=== PATIENT | female | born 1980 | race Caucasian/White ===

== ENCOUNTER 2018-07-14 11:50 | Inpatient (IN) ==
[2018-07-14 07:11] LABS: Basophils % 0.3 %; Eosinophils % 0.4 %; Hematocrit 38.3 % (35.3-44.9); Hemoglobin 12.9 g/dL (11.5-15.4); Immature Granulocytes % 0.3 % (0-4); Lymphocytes # 1.4 K/mcL (0.6-4.6); Lymphocytes % 12.6 %; Mean Corpuscular HGB Conc 33.7 g/dL (31.6-35.5); Mean Corpuscular Hemoglobin 30.3 pg (28.0-33.3); Mean Corpuscular Volume 89.9 fL (83.0-100.0); Mean Platelet Volume 11.8 fL (9.4-12.4); Monocytes # 0.5 K/mcL (0.0-1.3); Monocytes % 4.8 %; Neutrophils # 8.9 K/mcL (1.6-8.9); Platelet Count 198 K/mcL (140-400); Red Blood Count 4.26 M/mcL (3.82-4.97); Segmented Neutrophils % 81.6 %
--- NOTE | 2018-07-14 07:18 | OB/GYN History & Physical ---
Date of Encounter: 07/14/18 Time of Encounter: 07:14 Assessment and Plan (1) Previous section Current visit: Yes Status: Chronic (2) Active labor at term Current visit: Yes Status: Acute (3) Post-dates Current visit: Yes Status: Acute Qualifiers: Post-term type: 40-42 weeks gestation Qualified Code(s): O48.0 - Post-term History of Present Illness HPI: Ms. Clemente is a 38 year old female Patient is 38-year-old 1 para 7 white female enters today complaining of contractions. Denies spontaneous rupture membranes. She been followed in the office without difficulties. She denies history of TOLAC 6. She desires sterilization. Past Med Surg Social Fam HX - Past Medical History Medical history: no medical history Psychiatric history: no psych history - Past Surgical History Surgical History: - Social History Smoking Status: Never smoker Alcohol use: none Drug use: none - Family History Mother History Unknown: Yes Living Status: Still Living Hx Family Cardiac Disorders: No Hx Family Respiratory Disorders: No Hx Family Cancer: No Hx Family GI Disorders: No Hx Family Genitourinary Disorders: No Hx Family Endocrine Disorder: No Hx Family Musculoskeletal Disorders: No Hx Family Neuromuscular Disorders: No Hx Family Neurologic Disorders: No Hx Family HEENT Disorders: No Hx Family Autoimmune Disorders: No Hx Family Reproductive Disorders: No Hx Family Psychosocial Disorders: No Hx Family Medical Disorders: No Obstetrical History - Pregnancies : 8 Para: 7 Medications and Allergies Allergy/AdvReac Type Severity Reaction Status Date / Time No Known Allergies Allergy Verified 07/14/18 07:04 Review of System OB All systems PM: reviewed and no additional remarkable complaints except as stated - Genitourinary Genitourinary: amenorrhea - Menstruation Menstruation: amenorrhea Exam - Constitutional Constitutional: well developed, well nourished, moderate distress - HEENT HEENT: PERRL - Neck Neck exam: full ROM - Lungs Respiratory exam: CTAB - Cardiovascular Cardiovascular exam: RRR - Abdomen Abdomen: Present: gravid, non tender - Cervix Dilation: 7 Effacement: 80 Station: 0 - Uterus Uterus exam: Present: enlarged Results Result Diagrams: 07/14/18 06:55 All other labs normal. - VTE Reasons for not Prescribing Prophylaxis: Treatment not Indicated - Low risk for VTE
--- NOTE | 2018-07-14 07:55 | Anesthesia Evaluation PreOp ---
Date of Encounter: 07/14/18 Time of Encounter: 07:30 - Past History Planned Operation: Potential Stat Cardiac History: Denies any Significant Hx Pulmonary History: Denies Any Significant HX NETWORK SPECIALIST History: Denies Any Significant HX Other Medical History: Denies Any Significant HX Anesthesia History: No Prior Anesthetic Complications (previous GIANCARLO x 1--no complications; never had any procedure requiring GA; denies family h/o GA complications) : Yes Alcohol Use: none Drug use: none Medications and Allergies Allergy/AdvReac Type Severity Reaction Status Date / Time No Known Allergies Allergy Verified 07/14/18 07:04 - Meds/Allergy Pre-op Review Medications Reviewed: Yes Allergies Reviewed: Yes Beta Blockers on Current Med List: No Anesthesia Results - Labs 07/14/18 06:55 Anesthesia Exam O2 Sat Height 1.63 m Weight 74 kg NPO (# of Hours): solids > 8hrs Pain Scale: 7 Pain Scale Used: Larsen-Ureña (Faces) - HEENT Pupil (Motor): Pupils equal Mallampati: II Teeth: Missing (top left lateral incisor) Oral Opening: Greater than 3 - NETWORK SPECIALIST LOC: Oriented NETWORK SPECIALIST Motor: Normal RUE, Normal LUE, Normal RLE, Normal LLE, Normal Face NETWORK SPECIALIST Sensory: Normal: RUE, LUE, RLE, LLE, Face - Cardiac Rhythm: Regular Murmur: None - Pulmonary Breath Sounds: bilateral Clear Respiratory Effort: Symmetrical Anesthesia Assess/Plan ASA Score: 2 Level of consciousness: Cooperative, Oriented, Restless Anesthetic Plan: General (In the event of emergency , discussed anesthetic plan of care with patient. Because patient is declining a GIANCARLO at this time, the only option would be GETA. Patient verbalizes understanding. Encouraged patient to let anesthesia provider know if she changes her mind and would like a GIANCARLO. Consent obtained.) Autologous Blood: No Monitoring Plan: Standard Monitors Recovery Plan: PACU
--- NOTE | 2018-07-14 08:07 | OB Labor Progress Note ---
Date of Encounter: 07/14/18 Time of Encounter: 07:55 Labor Progress Note - Cervix Cervix: RIM / 90 / 0 - Heart Tones Heart Tones: Cat 1 - Interventions Interventions: AROM / CLEAR
--- NOTE | 2018-07-14 08:58 | OB/GYN Procedure Note ---
Delivery - Delivery Date: 07/14/18 Provider: Prateek Hernandez Intrapartum events: none Delivery induction: none Delivery monitor: external FHT, external uterine Anesthesia: none Quantitated Blood Loss: 400 - Infant (s) Infant A Infant Delivery Date: 07/14/18 Delivery Time: 08:15 Presentation: vertex Position: OA Route of delivery: Gender: Female Viability: Viable Pounds: 8 Ounces: 6 at 1 minute: 8 at 5 mins: 9 Shoulder Dystocia: not encountered Placenta: spontaneous Cord: other (Cord was looped around the leg 2) - Repair Episiotomy: none - Complications Delivery complications: none - Disposition Mom disposition: stable in LDR [place] disposition: stable in LDR - Comments Comments: Patient presented to labor and delivery in spontaneous labor. She progressed to complete and on the perineum and delivered a live female weighing 8 lbs. 6 oz. Apgars were 8 and 9. Placenta delivered spontaneously intact. Position was occiput anterior. Asthma blood loss was 400 mL. No episiotomy or tears were encountered.
[~2018-07-14 11:50] MED LIST: Acetaminophen 325 MG TABLET PO PRN; Famotidine 20 MG/2 ML VIAL IVP PRN; Lidocaine -MPF 2% 5 ML VIAL ONE; Measles/Mumps/Rubella Vacc 0.5 ML VIAL SQ PRN; Metoclopramide 10 MG/2 ML VIAL IVP PRN; Naloxone 0.4 MG/ML INJ IVP PRN; Ondansetron 4 MG/2 ML VIAL IVP PRN; Oxytocin 20 units/ LR 1000 mL 20 UNIT/1,000 ML BAG IVC ONE; Oxytocin 20 units/ LR 1000 mL 20 UNIT/1,000 ML BAG IVC SCH; Prenatal Vit/FA 1 EACH TABLET PO SCH; Ringers Solution, Lactated 1,000 ML IVC SCH
[2018-07-15] MEDS ORDERED: Ibuprofen 600 MG TABLET PO PRN (02:01)
[2018-07-15 04:26] LABS: Eosinophils % 0.6 %; Hematocrit 32.7 % (35.3-44.9); Immature Granulocytes % 0.3 % (0-4); Lymphocytes % 14.7 %; Mean Corpuscular HGB Conc 33.6 g/dL (31.6-35.5); Mean Corpuscular Hemoglobin 30.3 pg (28.0-33.3); Mean Corpuscular Volume 90.1 fL (83.0-100.0); Monocytes % 6.8 %; Platelet Count 162 K/mcL (140-400); Red Blood Count 3.63 M/mcL (3.82-4.97); Segmented Neutrophils % 77.4 %
[2018-07-15 04:27] LABS: Basophils % 0.2 %; Eosinophils # 0.1 K/mcL (0.0-0.6); Lymphocytes # 1.4 K/mcL (0.6-4.6); Monocytes # 0.7 K/mcL (0.0-1.3); Neutrophils # 7.3 K/mcL (1.6-8.9)
[2018-07-15 09:04] VITALS: BP 100/59
--- NOTE | 2018-07-15 09:12 | Discharge Summary ---
Date of Encounter: 07/15/18 Time of Encounter: 09:10 - Discharge Diagnosis (1) (vaginal after ) Priority: Primary Status: Acute Comments: Pt meeting all milestones. Discharge home today. (2) Breast feeding status of mother Priority: Secondary Status: Acute - Discharge Medications Home Medications: Acetaminophen [Tylenol] 650 mg PO Q6HR PRN tablet 07/15/18 [Rx] Docusate [Colace] 100 mg PO BID capsule 07/15/18 [Rx] Ibuprofen [Motrin] 600 mg PO Q6HR PRN tablet 07/15/18 [Rx] Vit/FA 1 each PO DAILY tablet 07/15/18 [Rx] Allergies/Adverse Reactions: Allergy/AdvReac Type Severity Reaction Status Date / Time No Known Allergies Allergy Verified 07/14/18 07:04 Data Procedures and tests throughout hospitalization: Laboratory Tests 07/14/18 07/14/18 07/15/18 06:55 07:40 04:02 WBC 10.9 9.5 RBC 4.26 3.63 L Hgb 12.9 11.0 L D Hct 38.3 32.7 L MCV 89.9 90.1 MCH 30.3 30.3 MCHC 33.7 33.6 RDW 13.0 13.0 Plt Count 198 162 MPV 11.8 12.0 Immature Gran % 0.3 0.3 Seg Neutrophils % 81.6 77.4 Lymphocytes % 12.6 14.7 Monocytes % 4.8 6.8 Eosinophils % 0.4 0.6 Basophils % 0.3 0.2 Neutrophils # 8.9 7.3 Lymphocytes # 1.4 1.4 Monocytes # 0.5 0.7 Eosinophils # 0.0 0.1 Basophils # 0.0 0.0 Hep Bs Antigen Nonreactive Labs on day of discharge: Labs from last 24 hours 07/15/18 07/14/18 04:02 07:40 WBC 9.5 RBC 3.63 L Hgb 11.0 L D Hct 32.7 L MCV 90.1 MCH 30.3 MCHC 33.6 RDW 13.0 Plt Count 162 MPV 12.0 Immature Gran % 0.3 Seg Neutrophils % 77.4 Lymphocytes % 14.7 Monocytes % 6.8 Eosinophils % 0.6 Basophils % 0.2 Neutrophils # 7.3 Lymphocytes # 1.4 Monocytes # 0.7 Eosinophils # 0.1 Basophils # 0.0 Hep Bs Antigen Nonreactive Date of admission: 07/14/18 12:32 Primary care physician: Emma Ventura MD Consults: 07/14/18 10:15 Consult to Instrument And Controls Technician [CONS] Routine Comment: Vaginal delivery, consult needed Discharging clinician: Holley Gandhi Anticipated date of discharge: 07/15/18 - Patient Status Disposition: Home, Self-Care Condition: Good Functional capacity at discharge: independent ambulation Overall status at discharge: patient is progressing back to baseline - Discharge Instructions Follow Up With: Emma Ventura MD [Primary Care Provider] - Prateek Hernandez MD [Partnered Physician] - Hospital Course Reason for admission: active labor Delivery: Episiotomy: none Laceration: none Other procedures: none complications: none Discharge diagnosis: IUP at term delivered baby: female Hospital course: - Delivery Date: 07/14/18 Provider: Prateek Hernandez Intrapartum events: none Delivery induction: none Delivery monitor: external FHT, external uterine Anesthesia: none Quantitated Blood Loss: 400 - Infant (s) A Delivery Date: 07/14/18 Infant Delivery Time: 08:15 Presentation: vertex Position: OA Route of delivery: Gender: Female Viability: Viable Pounds: 8 Ounces: 6 at 1 minute: 8 at 5 mins: 9 Shoulder Dystocia: not encountered Placenta: spontaneous Cord: other (Cord was looped around the leg 2) - Repair Episiotomy: none - Complications Delivery complications: none - Disposition Mom disposition: home PPD1 [place] disposition: home with mother, Time Attestation: Total time spent providing and/or coordinating discharge services: Time Spent: Less than 30 minutes Exam - Constitutional Vitals: Temp Pulse Resp BP Pulse Ox 97.5 F L 60 16 100/59 97 07/15/18 08:45 07/15/18 08:45 07/15/18 08:45 07/15/18 08:45 07/15/18 08:45 General appearance IM: A&O X 3 - Respiratory Respiratory exam: Present: CTAB - Cardiovascular Cardiovascular exam IM: Present: RRR - GI/Abdominal GI/Abdominal exam IM: soft - Uterine Tone: Firm Uterus Position: 1 Finger Below Umbilicus - Extremities Exam Extremities exam IM: Present: normal inspection - Neurological Exam Neurological exam: normal gait, oriented X3 - Psychiatric Additional comments: reports good mood
== END 2018-07-15 10:56 | disposition home or self-care (01) | DRG 807 ==
LOC: 1NENULAB → 1NENUOBS 11:50
PROVIDERS: ADMIT Advanced Practice Midwife; ATTEND Advanced Practice Midwife